=== PATIENT | male | born 2005 | race Two or more races ===

== ENCOUNTER 2024-06-20 18:03 | Emergency (ER) | payer MEDICAID, SELFPAY ==
[2024-06-20 18:11] VITALS: BMI 25.1
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
[2024-06-20] MEDS: HYDROmorphone INJ 2 MG/ML VIAL 1 MG IVP (18:22)
[2024-06-20] MEDS: KETOROLAC INJ 30 MG/ML VIAL IVP (18:23)
[2024-06-20 18:27] VITALS: BP 122/76; PULSE 60; RESP 19; TEMP 37.1; O2SAT 99
[2024-06-20] MEDS: SODIUM CHLORIDE 0.9% 1000 ML 1,000 ML 999 ML IV (18:27)
[2024-06-20] MEDS: LIDOCAINE/PRILOCAINE CR 5GM 5 GM TUBE TOP ×3 (18:38→19:26)
[2024-06-20 18:39] LABS: Basophils % (Auto) 1 % (0-2.5); Eosinophils # (Auto) 0.1 Thou/mm3 (0.0-0.5); Eosinophils % (Auto) 2 % (0-10); Hemoglobin 14.2 g/dL (13.5-16.0); Immature Granulocytes % (Auto) 0 % (0-0); Immature Granulocytes Auto 0.02 Thou/mm3 (0.00-0.00); Lymphocytes # (Auto) 3.1 Thou/mm3 (1.0-4.8); Lymphocytes % (Auto) 37 % (10-50); Mean Corpuscular HGB Conc 34.6 g/dl (31.0-37.0); Mean Corpuscular Hemoglobin 29.4 pg (25.0-35.0); Mean Corpuscular Volume 85 fL (80-100); Monocytes # (Auto) 0.5 Thou/mm3 (0.0-0.8); Monocytes % (Auto) 6 % (0-12); Neutrophils # (Auto) 4.6 Thou/mm3 (1.8-7.7); Neutrophils % (Auto) 55 % (37-80); Nucleated Red Blood Cell % 0 /100 WBC (0); Platelet Count 253 Thou/mm3 (140-440); RDW Standard Deviation 36.7 fL (35.1-43.9); Red Blood Count 4.83 Miln/mm3 (4.50-5.90); White Blood Count 8.4 Thou/mm3 (4.5-11.0)
[2024-06-20] MEDS: ceFAZolin/D5W 2 GM IV 2 GM/100 ML BAG IV (18:39)
[2024-06-20 19:02] LABS: Alanine Aminotransferase 8 U/L (10-49); Albumin/Globulin Ratio 1.6 (1.2-2.2); Alcohol, Blood Medical < 3.0 mg/dL (0-10.0); Alkaline Phosphatase 75 U/L (46-116); Anion Gap 12 (7-16); Aspartate Amino Transferase 20 U/L (0-34); BUN/Creatinine Ratio 20 Ratio (12-20); Bilirubin,Total 0.4 mg/dL (0.3-1.2); Blood Urea Nitrogen 20 mg/dL (9-23); Calcium 10.5 mg/dL (8.3-10.6); Calcium (Corrected) 10.5 mg/dL (8.5-10.1); Carbon Dioxide 25.3 mMol/L (20.0-31.0); Chloride 104 mMol/L (98-107); Estimated Creatinine Clearance 125.5 mL/min (>60); Globulin 3.1 gm/dL (2.3-3.5); Glucose 116 mg/dL (74-106); Magnesium 1.8 mg/dL (1.6-2.6); Osmolality,Calculated 284 (275-295); Potassium 3.3 mMol/L (3.4-5.1); Sodium 141 mMol/L (136-145); Total Protein 8.1 gm/dL (5.7-8.2); eGFR > 60 See Note
[2024-06-20] MEDS: BACITRACIN OINT 1 GM PACKET TOP ×3 (19:17→19:18)
[2024-06-20 19:34] LABS: Partial Thromboplastin Time 22.8 Seconds (22.0-36.0); Prothrombin Time 10.9 Seconds (9.0-12.2)
[2024-06-20 21:00] VITALS: BP 112/65; PULSE 78; RESP 19; TEMP 36.7; O2SAT 98
[2024-06-20] MEDS: POTASSIUM CHLORIDE 10% 20 MEQ/15 ML UDC 40 MEQ PO (21:53)
--- NOTE | 2024-06-20 22:04 | PC.CC ---
Jessy TENORIO arranged transportation for patient for CT with [facility] for 0600
[2024-06-21 00:19] VITALS: BP 116/65; PULSE 83; RESP 18; TEMP 37; O2SAT 98
[2024-06-21 02:40] VITALS: BP 120/65; PULSE 79; RESP 16; TEMP 37.2; O2SAT 99
[2024-06-21] MEDS: HYDROmorphone INJ 2 MG/ML VIAL 1 MG IVP ×2 (02:54)
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
[2024-06-21 04:00] VITALS: BP 126/64; PULSE 78; RESP 18; TEMP 36.6; O2SAT 99
== END 2024-06-21 04:02 | disposition home or self-care (01) ==
PROVIDERS: Emergency Provider Emergency Medicine; PCP Family Medicine
DX: S80.212A Abrasion, left knee, initial encounter (principal); S80.211A Abrasion, right knee, initial encounter; S60.512A Abrasion of left hand, initial encounter; S60.511A Abrasion of right hand, initial encounter; S50.312A Abrasion of left elbow, initial encounter; S50.311A Abrasion of right elbow, initial encounter; S29.9XXA Unspecified injury of thorax, initial encounter; S09.93XA Unspecified injury of face, initial encounter; S19.9XXA Unspecified injury of neck, initial encounter; S09.90XA Unspecified injury of head, initial encounter; S39.92XA Unspecified injury of lower back, initial encounter; V29.99XA Rider (driver) (passenger) of other motorcycle injured in unspecified traffic accident, initial encounter
CPT/HCPCS: 36415; 70450; 70486; 71045; 71250; 72125; 72128; 72131; 73120; 73562; 74176; 80053; 80307; 80320; 83735; 85025; 85610; 85730; 96361; 96365; 96375; 96376; 99284; J0689; J1885; J3490; J7030; A9270; G0480

== ENCOUNTER 2024-06-22 10:41 | Emergency (ER) | payer MEDICAID, SELFPAY ==
[2024-06-22 10:41] VITALS: BMI 19.5
[2024-06-22 11:17] VITALS: BP 109/74; PULSE 71; RESP 16; TEMP 36.7; O2SAT 99; BMI 19.0
--- NOTE | 2024-06-22 11:21 | XR_ITS ---
Examination: Left elbow 3 views Technique: Elbow AP, oblique, lateral 3 views Exam date and time: June 22, 2024 1201 hrs. Indications: Injury this morning with injury to the elbow, elbow pain. Findings: Acute nondisplaced fracture radial head Large elbow effusion No dislocation Impression: Acute nondisplaced fracture radial head.
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
[2024-06-22 11:54] LABS: Lactate (Lactic Acid) 1.3 mMol/L (0.4-2.0)
[2024-06-22 12:00] LABS: Basophils % (Auto) 0 % (0-2.5); Eosinophils % (Auto) 0 % (0-10); Hematocrit 42.5 % (41.0-53.0); Hemoglobin 14.4 g/dL (13.5-16.0); Immature Granulocytes % (Auto) 0 % (0-0); Immature Granulocytes Auto 0.02 Thou/mm3 (0.00-0.00); Lymphocytes # (Auto) 1.6 Thou/mm3 (1.0-4.8); Lymphocytes % (Auto) 17 % (10-50); Mean Corpuscular HGB Conc 33.9 g/dl (31.0-37.0); Mean Corpuscular Hemoglobin 29.3 pg (25.0-35.0); Mean Corpuscular Volume 86 fL (80-100); Monocytes # (Auto) 0.7 Thou/mm3 (0.0-0.8); Monocytes % (Auto) 8 % (0-12); Neutrophils # (Auto) 7.1 Thou/mm3 (1.8-7.7); Neutrophils % (Auto) 75 % (37-80); Nucleated Red Blood Cell % 0 /100 WBC (0); Platelet Count 191 Thou/mm3 (140-440); RDW Standard Deviation 38.2 fL (35.1-43.9); Red Blood Count 4.92 Miln/mm3 (4.50-5.90); White Blood Count 9.5 Thou/mm3 (4.5-11.0)
[2024-06-22 12:32] LABS: Alanine Aminotransferase < 7 U/L (10-49); Albumin, Serum 5.1 gm/dL (3.5-5.0); Albumin/Globulin Ratio 1.6 (1.2-2.2); Alkaline Phosphatase 64 U/L (46-116); Anion Gap 8 (7-16); Aspartate Amino Transferase 24 U/L (0-34); BUN/Creatinine Ratio 14 Ratio (12-20); Bilirubin,Total 1.1 mg/dL (0.3-1.2); Blood Urea Nitrogen 14 mg/dL (9-23); Calcium 10.2 mg/dL (8.3-10.6); Calcium (Corrected) 10.2 mg/dL (8.5-10.1); Carbon Dioxide 28.2 mMol/L (20.0-31.0); Chloride 102 mMol/L (98-107); Globulin 3.1 gm/dL (2.3-3.5); Glucose 111 mg/dL (74-106); Osmolality,Calculated 277 (275-295); Potassium 3.9 mMol/L (3.4-5.1); Procalcitonin 0.07 ng/ml (0.0-0.49); Sodium 138 mMol/L (136-145); Total Protein 8.2 gm/dL (5.7-8.2); eGFR > 60 See Note
[2024-06-22] MEDS: HYDROcodone/APAP 5/325 TABLET 1 TAB PO (15:30)
[2024-06-22] MEDS: LIDOCAINE HCL 1% 20 ML VIAL 2.1 ML INFL (15:31)
[2024-06-22] MEDS: cefTRIAXone SOD INJ 1,000 MG VIAL 1000 MG IM (15:31)
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
--- NOTE | 2024-06-22 17:01 | PC.NURSE ---
wounds cleaned and new bandages applied prior to discharge
== END 2024-06-22 17:02 | disposition home or self-care (01) ==
PROVIDERS: Nurse Practitioner Primary Care; Emergency Provider Emergency Medicine; PCP Family Medicine
DX: S52.125A Nondisplaced fracture of head of left radius, initial encounter for closed fracture (principal); T14.8XXA Other injury of unspecified body region, initial encounter; V86.96XA Unspecified occupant of dirt bike or motor/cross bike injured in nontraffic accident, initial encounter
CPT/HCPCS: 29105; 36415; 73080; 80053; 83605; 84145; 85025; 87040; 96372; 99283; J0696; J3490; A9270

== ENCOUNTER → 2024-07-05 | Outpatient (CLI) | payer MEDICAID, SELFPAY | END | disposition home or self-care (01) | PROVIDERS: Visit Provider Surgery | DX: S81.001A Unspecified open wound, right knee, initial encounter (principal); S21.202A Unspecified open wound of left back wall of thorax without penetration into thoracic cavity, initial encounter; S42.401A Unspecified fracture of lower end of right humerus, initial encounter for closed fracture; S71.102A Unspecified open wound, left thigh, initial encounter; X58.XXXA Exposure to other specified factors, initial encounter; F17.200 Nicotine dependence, unspecified, uncomplicated | CPT/HCPCS: 99213; A9270; G0463 ==